=== PATIENT | male | born 1980 | race Caucasian/White ===

== ENCOUNTER 2017-07-03 17:57 | Outpatient (CLI) | payer MEDICAID | END 2017-07-03 17:58 | disposition critical access hospital (66) | LOC: EMS 17:57 | PROVIDERS: ATTEND Surgery | DX: R41.82 Altered mental status, unspecified (principal) | CPT/HCPCS: A0425; A0429 ==

== ENCOUNTER 2017-07-03 18:20 | Emergency (ER) | payer MEDICAID ==
--- NOTE | 2017-07-03 18:35 | ED Physician Documentation ---
PD HPI ALTERED MENTAL STATUS - Stated complaint Stated Complaint: MHE - Chief complaint Chief Complaint: Neuro - History obtained from History obtained from: Patient, EMS - History of Present Illness Timing - onset: Today Timing - duration: Other ([place]) Timing - details: Other (unknown) Treatment FINANCIAL SECRETARY: Accucheck (Normal per EMS) - Additional information Additional information: Patient apparently found in his car today. Unable to answer questions. Review of Systems Unable to obtain: [facility] PAST MEDICAL HISTORY - Past Medical History Psych: Anxiety, Post traumatic stress disorder - Present Medications Home Medications: Ambulatory Orders Medication Instructions Recorded Confirmed Buspirone HCl 20 mg PO TID PRN 07/03/17 07/03/17 Clonidine HCl 0.2 mg PO BID 07/03/17 07/03/17 Gabapentin 900 mg PO TID 07/03/17 07/03/17 Hydroxyzine HCl 100 mg PO QID PRN 07/03/17 07/03/17 Lorazepam 1 mg PO Q6HR PRN 07/03/17 07/03/17 Sertraline HCl 150 mg PO DAILY 07/03/17 07/03/17 Sumatriptan Succinate 100 mg PO PRN PRN 07/03/17 07/03/17 - Allergies Allergies/Adverse Reactions: Allergies Allergy/AdvReac Type Severity Reaction Status Date / Time Unable to Assess Allergy Verified 07/03/17 18:28 - Living Situation Living Situation: reports: Unknown Living Arrangement: reports: Unknown - Social History Smoking Status: Unknown if ever smoked ETOH Use: Other (Unknown) Substance Use and Type: Other (Unknown, but does have a Narcotics Anonymous and Alcoholics Anonymous card with him) - Family History Family history: reports: Other (Unknown) PD ED PE NORMAL - Vitals Vital signs reviewed: Yes - General General: No acute distress, Well developed/nourished, Other (Patient is drowsy but arousable, mild slurring of his speech) - HEENT HEENT: Atraumatic, PERRL, EOMI, Moist mucous membranes, Dentition benign - Neck Neck: Supple, no meningeal sign, No bony TTP - Cardiac Cardiac: RRR, Strong equal pulses - Respiratory Respiratory: No respiratory distress, Clear bilaterally - Abdomen Abdomen: Soft, Non tender, Non distended - Back Back: No spinal TTP - Derm Derm: Warm and dry, No rash - Extremities Extremities: No edema, No calf tenderness / cord - Neuro Neuro: Other (GCS 13) Results - Vitals Vitals: Vital Signs - 24 hr 07/03/17 07/03/17 07/03/17 18:20 18:37 21:09 Temperature 37.0 C Heart Rate 91 88 70 Respiratory 20 22 14 Rate Blood Pressure 191/167 H 205/189 H 109/68 O2 Saturation 95 96 91 L Oxygen O2 Source Room air - EKG (time done) 1914 Rate: Rate (enter#) (84) Rhythm: NSR Slater: Normal Intervals: Normal CA QRS: Normal Ischemia: Non specific changes - Labs Labs: Laboratory Tests 07/03/17 07/03/17 07/03/17 18:33 18:33 18:33 WBC 10.2 RBC 5.50 Hgb 16.3 Hct 47.2 MCV 85.9 MCH 29.6 MCHC 34.5 RDW 12.0 Plt Count 254 MPV 6.8 L Neut # 6.8 H Lymph # 2.5 [place] # 0.7 Eos # 0.2 Baso # 0.1 Absolute Nucleated RBC 0.01 Nucleated RBCs 0.1 Sodium 138 Potassium 4.4 Chloride 105 Carbon Dioxide 24 Anion Gap 9.0 BUN 23 H Creatinine 1.3 H Estimated GFR (MDRD) 62 L Glucose 105 H POC Whole Bld Glucose Calcium 9.4 Total Bilirubin 1.1 H AST 22 ALT 27 Alkaline Phosphatase 103 Total Protein 7.9 Albumin 4.5 Globulin 3.4 Albumin/Globulin Ratio 1.3 Lipase 18 L TSH 3.18 Urine Color Urine Clarity Urine pH Ur Specific [place] Urine Protein Urine Glucose (UA) Urine Ketones Urine Occult Blood Urine Nitrite Urine Bilirubin Urine Urobilinogen Ur Leukocyte Esterase Ur Microscopic Review Urine Culture Comments Salicylates < 6.0 Urine Opiates Screen Ur Oxycodone Screen Urine Methadone Screen Ur Propoxyphene Screen Acetaminophen 12 Ur Barbiturates Screen Ur Tricyclics Screen Ur Phencyclidine Scrn Ur Amphetamine Screen U Methamphetamines Scrn U Benzodiazepines Scrn Urine Cocaine Screen U Cannabinoids Screen Ethyl Alcohol 7.8 07/03/17 07/03/17 18:37 19:40 WBC RBC Hgb Hct MCV MCH MCHC RDW Plt Count MPV Neut # Lymph # [place] # Eos # Baso # Absolute Nucleated RBC Nucleated RBCs Sodium Potassium Chloride Carbon Dioxide Anion Gap BUN Creatinine Estimated GFR (MDRD) Glucose POC Whole Bld Glucose 117 H Calcium Total Bilirubin AST ALT Alkaline Phosphatase Total Protein Albumin Globulin Albumin/Globulin Ratio Lipase TSH Urine Color YELLOW Urine Clarity CLEAR Urine pH 6.0 Ur Specific [place] 1.015 Urine Protein NEGATIVE Urine Glucose (UA) NEGATIVE Urine Ketones NEGATIVE Urine Occult Blood NEGATIVE Urine Nitrite NEGATIVE Urine Bilirubin NEGATIVE Urine Urobilinogen 0.2 (NORMAL) Ur Leukocyte Esterase NEGATIVE Ur Microscopic Review NOT INDICATED Urine Culture Comments NOT INDICATED Salicylates Urine Opiates Screen NEGATIVE Ur Oxycodone Screen NEGATIVE Urine Methadone Screen NEGATIVE Ur Propoxyphene Screen NEGATIVE Acetaminophen Ur Barbiturates Screen NEGATIVE Ur Tricyclics Screen NEGATIVE Ur Phencyclidine Scrn NEGATIVE Ur Amphetamine Screen NEGATIVE U Methamphetamines Scrn NEGATIVE U Benzodiazepines Scrn POSITIVE H Urine Cocaine Screen NEGATIVE U Cannabinoids Screen NEGATIVE Ethyl Alcohol - Rads (name of study) head CT Radiology: Prelim report reviewed, EMP read contemporaneously, See rad report ( no acute abnormality) PD MEDICAL DECISION MAKING - ED course Complexity details: reviewed old records, reviewed results, re-evaluated patient , considered differential, d/w patient, d/w family ED course: Patient is a 37-year-old gentleman who presents to the emergency department after being found slumped over in his car in the side of the road. EMS was called by bystanders. Upon going through his medications are with him. He did receive 15 pills of Ativan yesterday and only has 6 remaining. His hydroxyzine and sertraline are also gone, refilled both of these 2 days ago. This appears to be an overdose. When his mother arrived she states that he has attempted to overdose and kill himself several times. He recently got out of treatment in [facility] was there for approximately 45 days. She states that he was recently broken up with what by his girlfriend and has a court appearance upcoming. States that he has been very stressed out about this. He maintained his own airway in the emergency department and was sleeping comfortably. He will need to be reevaluated when the medications wear off for mental health. Likely will need involuntary placement secondary to his multiple attempts in the past. Poison control was also contacted and recommended supportive care and monitoring for approximately 6 hours. Patient signed out to the oncoming emergency department physician. This document was made in part using voice recognition software. While efforts are made to proofread this document, sound alike and grammatical errors may occur. Departure - Departure Clinical Impression: Medication overdose Qualifiers: Encounter type: initial encounter Injury intent: undetermined intent Qualified Code(s): T50.904A - Poisoning by unspecified drugs, medicaments and biological substances, undetermined, initial encounter Condition: Stable
[2017-07-03 18:40] LABS: BASOPHILS # (AUTO) 0.1 10^3/uL (0.0-0.1); BASOPHILS % (AUTO) 0.7 %; EOSINOPHILS # (AUTO) 0.2 10^3/uL (0.0-0.7); EOSINOPHILS % (AUTO) 1.5 %; HCT - HEMATOCRIT 47.2 % (42.0-52.0); HGB - HEMOGLOBIN 16.3 g/dL (14.0-18.0); LYMPHOCYTES # (AUTO) 2.5 10^3/uL (1.5-3.5); LYMPHOCYTES % (AUTO) 24.8 %; MEAN CORPUSCULAR HEMOGLOBIN 29.6 pg (27.0-31.0); MEAN CORPUSCULAR HGB CONC 34.5 g/dL (32.0-36.0); MEAN CORPUSCULAR VOLUME 85.9 fL (80.0-94.0); MEAN PLATELET VOLUME 6.8 fL (7.4-11.4); MONOCYTES # (AUTO) 0.7 10^3/uL (0.0-1.0); MONOCYTES % (AUTO) 6.4 %; NEUTROPHILS # (AUTO) 6.8 10^3/uL (1.5-6.6); NEUTROPHILS % (AUTO) 66.6 %; NUCLEATED RED BLOOD CELLS AUTO 0.1 /100WBC; UNCORRECTED WHITE BLOOD COUNT 10.2 x10^3/uL; WHITE BLOOD COUNT 10.2 x10^3/uL (4.8-10.8)
[2017-07-03 18:55] LABS: ACETAMINOPHEN 12 ug/mL (10-30); ALBUMIN/GLOBULIN RATIO 1.3 (1.0-2.2); BILIRUBIN,TOTAL 1.1 mg/dL (0.2-1.0); BUN - BLOOD UREA NITROGEN 23 mg/dL (6-20); CALCIUM 9.4 mg/dL (8.5-10.3); CARBON DIOXIDE - CO2 24 mmol/L (21-32); CHLORIDE 105 mmol/L (101-111); CREATININE 1.3 mg/dL (0.6-1.2); GFR - MDRD 62 (>89); GLUCOSE 105 mg/dL (70-100); LIPASE 18 U/L (22-51); POTASSIUM 4.4 mmol/L (3.5-5.0); SALICYLATE < 6.0 mg/dL; SODIUM 138 mmol/L (135-145); TOTAL PROTEIN 7.9 g/dL (6.7-8.2)
--- NOTE | 2017-07-03 19:32 | CT Preliminary Report ---
Exam: CT Head W/O IMPRESSION: 1. No acute intracranial abnormality. Specifically, no evidence of acute infarct, hemorrhage, or mass lesion. [facility] SITE ID: [id number]
--- NOTE | 2017-07-03 19:34 | CT Report ---
EXAM: CT HEAD EXAM DATE: 07/03/2017 07:18 PM. CLINICAL HISTORY: 37-year-old man with altered mental status. COMPARISON: None. TECHNIQUE: Multiaxial CT images were obtained from the foramen magnum to the vertex. IV contrast: Non e. Reformats: Coronal. In accordance with CT protocol optimization, one or more of the following dose reduction techniques w ere utilized for this exam: automated exposure control, adjustment of mA and/or KV based on patient s ize, or use of iterative reconstructive technique. FINDINGS: Parenchyma: No evidence of acute infarct, hemorrhage, or mass lesion. The parenchyma demonstrates nor mal attenuation characteristics. Ventricles and Extra-axial Spaces: Ventricles are symmetric and normal in size. No extra-axial hemorr nany or fluid collection. Orbits: Unremarkable. Sinuses: Paranasal sinuses and mastoid air cells are clear. Extracranial Soft Tissues and Bones: Soft tissues are unremarkable. No fractures. IMPRESSION: 1. No acute intracranial abnormality. Specifically, no evidence of acute infarct, hemorrhage, or mass lesion. [facility] Referring Provider Line: [phone] SITE ID: [id number]
[2017-07-03 19:59] LABS: BILIRUBIN,URINE NEGATIVE (NEGATIVE)
[2017-07-03 20:06] LABS: UA CHARGE (STRIP ONLY) YES; UR CULTURE IF IND NOT INDICATED
[2017-07-04] MEDS: NICOTINE 14 MG PATCH TOP STA ×2 (01:49→04:07)
[2017-07-04] MEDS ORDERED: NICOTINE 21 MG PATCH TOP STA (01:56)
[2017-07-04] MEDS ORDERED: NICOTINE 21 MG PATCH TOP ONE ×2 (02:00→02:20)
--- NOTE | 2017-07-04 07:49 | ED Physician Documentation ---
History of Present Illness - Stated complaint Stated Complaint: MHE - Chief complaint Chief Complaint: Neuro PD PAST MEDICAL HISTORY - Past Medical History Past Medical History: Yes Neuro: Headache/migraine Psych: Anxiety, Post traumatic stress disorder - Present Medications Home Medications: Ambulatory Orders Medication Instructions Recorded Confirmed Buspirone HCl 20 mg PO TID PRN 07/03/17 07/03/17 Clonidine HCl 0.2 mg PO BID 07/03/17 07/03/17 Gabapentin 900 mg PO TID 07/03/17 07/03/17 Hydroxyzine HCl 100 mg PO QID PRN 07/03/17 07/03/17 Lorazepam 1 mg PO Q6HR PRN 07/03/17 07/03/17 Sertraline HCl 150 mg PO DAILY 07/03/17 07/03/17 Sumatriptan Succinate 100 mg PO PRN PRN 07/03/17 07/03/17 - Allergies Allergies/Adverse Reactions: Allergies Allergy/AdvReac Type Severity Reaction Status Date / Time Unable to Assess Allergy Verified 07/03/17 18:28 - Social History Does the pt smoke?: Yes Smoking Status: Unknown if ever smoked Does the pt drink ETOH?: No ETOH Use: Other (Unknown) Does the pt have substance abuse?: No Substance Use and Type: Other (Unknown, but does have a Narcotics Anonymous and Alcoholics Anonymous card with him) Results - Vitals Vitals: Vital Signs - 24 hr 07/03/17 07/03/17 07/04/17 21:09 23:00 01:20 Heart Rate 70 69 67 Respiratory 14 14 16 Rate Blood Pressure 109/68 117/69 115/69 O2 Saturation 91 L 91 L 92 07/04/17 07/04/17 07/04/17 03:00 03:45 06:00 Heart Rate 66 65 75 Respiratory 16 16 16 Rate Blood Pressure 111/62 117/71 98/75 O2 Saturation 94 92 94 07/04/17 12:51 Heart Rate 66 Respiratory 18 Rate Blood Pressure 112/60 O2 Saturation 98 Oxygen O2 Source Room air - Labs Labs: Laboratory Tests 07/03/17 07/03/17 07/03/17 18:33 18:33 18:33 WBC 10.2 RBC 5.50 Hgb 16.3 Hct 47.2 MCV 85.9 MCH 29.6 MCHC 34.5 RDW 12.0 Plt Count 254 MPV 6.8 L Neut # 6.8 H Lymph # 2.5 [place] # 0.7 Eos # 0.2 Baso # 0.1 Absolute Nucleated RBC 0.01 Nucleated RBCs 0.1 Sodium 138 Potassium 4.4 Chloride 105 Carbon Dioxide 24 Anion Gap 9.0 BUN 23 H Creatinine 1.3 H Estimated GFR (MDRD) 62 L Glucose 105 H POC Whole Bld Glucose Calcium 9.4 Total Bilirubin 1.1 H AST 22 ALT 27 Alkaline Phosphatase 103 Total Protein 7.9 Albumin 4.5 Globulin 3.4 Albumin/Globulin Ratio 1.3 Lipase 18 L TSH 3.18 Urine Color Urine Clarity Urine pH Ur Specific [place] Urine Protein Urine Glucose (UA) Urine Ketones Urine Occult Blood Urine Nitrite Urine Bilirubin Urine Urobilinogen Ur Leukocyte Esterase Ur Microscopic Review Urine Culture Comments Salicylates < 6.0 Urine Opiates Screen Ur Oxycodone Screen Urine Methadone Screen Ur Propoxyphene Screen Acetaminophen 12 Ur Barbiturates Screen Ur Tricyclics Screen Ur Phencyclidine Scrn Ur Amphetamine Screen U Methamphetamines Scrn U Benzodiazepines Scrn Urine Cocaine Screen U Cannabinoids Screen Ethyl Alcohol 7.8 07/03/17 07/03/17 18:37 19:40 WBC RBC Hgb Hct MCV MCH MCHC RDW Plt Count MPV Neut # Lymph # [place] # Eos # Baso # Absolute Nucleated RBC Nucleated RBCs Sodium Potassium Chloride Carbon Dioxide Anion Gap BUN Creatinine Estimated GFR (MDRD) Glucose POC Whole Bld Glucose 117 H Calcium Total Bilirubin AST ALT Alkaline Phosphatase Total Protein Albumin Globulin Albumin/Globulin Ratio Lipase TSH Urine Color YELLOW Urine Clarity CLEAR Urine pH 6.0 Ur Specific [place] 1.015 Urine Protein NEGATIVE Urine Glucose (UA) NEGATIVE Urine Ketones NEGATIVE Urine Occult Blood NEGATIVE Urine Nitrite NEGATIVE Urine Bilirubin NEGATIVE Urine Urobilinogen 0.2 (NORMAL) Ur Leukocyte Esterase NEGATIVE Ur Microscopic Review NOT INDICATED Urine Culture Comments NOT INDICATED Salicylates Urine Opiates Screen NEGATIVE Ur Oxycodone Screen NEGATIVE Urine Methadone Screen NEGATIVE Ur Propoxyphene Screen NEGATIVE Acetaminophen Ur Barbiturates Screen NEGATIVE Ur Tricyclics Screen NEGATIVE Ur Phencyclidine Scrn NEGATIVE Ur Amphetamine Screen NEGATIVE U Methamphetamines Scrn NEGATIVE U Benzodiazepines Scrn POSITIVE H Urine Cocaine Screen NEGATIVE U Cannabinoids Screen NEGATIVE Ethyl Alcohol PD MEDICAL DECISION MAKING - ED course ED course: assumed care 7 AM per turnover pt was found with dec LOC in a car yesterday per pill count seems pt overdosed on zoloft (150 mg filled 07/01 took 45/45), vistaril (100mg filled 06/30 took 99/100) and ativan (1 mg filled 07/02 took 07/07) no injury reported / no MVA reported / EMS report obtained and reviewed case was d/w poison control, pt was observed as recommended, now is medically cleared due to intentional OD and then riving his vehicle pt is believed to be a danger to himself and others he has been seen by DCR Barby who feels pt is not safe for dc and is looking for invol bed to detain pt to apparently he has a prior felony and facing new legal charges and so is not being accepted at numerous facilities he has prior inpt stays most recently in [facility] in [place] for drug/ mental dual diagnosis, also has been to [facility] he is from [place] and seems confused to find himself on [place] this morning I went to see pt he was sleeping but easily awakened he has no new complaints - does state he has chronic L foot pain after reconstructive surgery RRR CTAB pt confused as to where he is foot s infection or deformity, prior surgical scar ordered breakfast and DCR will continue to try and place pt DCR able to get pt a bed at [place] [facility] and thus completed PR[facility]ANNA detainment Departure - Departure Disposition: [facility]/Unit DC/Xfer Clinical Impression: Medication overdose Qualifiers: Encounter type: initial encounter Injury intent: undetermined intent Qualified Code(s): T50.904A - Poisoning by unspecified drugs, medicaments and biological substances, undetermined, initial encounter Condition: Stable Discharge Date/Time: 07/04/17 18:19
[2017-07-04] MEDS ORDERED: LORazepam 2 MG/ML SYRINGE IVP STA ×2 (11:18→15:17)
[2017-07-04] MEDS ORDERED: LORazepam 2 MG/ML SYRINGE ONE ×2 (11:35→15:17)
[2017-07-04 12:54] VITALS: BP 112/60
== END 2017-07-04 18:19 ==
LOC: ED 18:20
DX: T42.4X4A Poisoning by benzodiazepines, undetermined, initial encounter (principal); F41.9 Anxiety disorder, unspecified; F43.10 Post-traumatic stress disorder, unspecified; Z91.5 Personal history of self-harm
CPT/HCPCS: 36415; 51701; 70450; 80053; 80306; 80307; 80320; 80329; 81003; 83690; 84443; 85025; 93005; 96374; 96376; 99285; A9270; J2060; 81001; 87086